=== PATIENT | male | born 1980 | race Hispanic/Latino ===

== ENCOUNTER 2025-05-12 19:24 | Emergency (ER) | payer OTHER ==
[~2025-05-12] VITALS: Ht 177.8 cm; Wt 83.9 kg
[2025-05-12] MEDS: ORPHENADRINE 60MG/2ML IM ONE (22:49)
[2025-05-12] MEDS ORDERED: CYCL-309 PO (23:23)
[2025-05-12] MEDS ORDERED: KETO10TA2 PO (23:23)
--- NOTE | 2025-05-12 23:25 | ERN ---
General Chief Complaint: Low Back Pain/Injury Stated Complaint: BACK PAIN Time Seen by MD: 20:19 Time Seen by Midlevel: 20:19 Source: patient History of Present Illness Initial Comments Patient is a 45-year-old male presenting to the ER with lower back pain. Patient states he with a picking up something while at work and felt his lower back locked up. Patient was unable to stand up for several minutes. On arrival he reports pain to his lower back denies any urinary/bowel incontinence, denies numbness to lower extremities, denies weakness lower extremities. Allergies: Coded Allergies: No Known Allergies (Unverified Allergy, Unknown, 05/12/25) Past Medical History Past Medical History: No Pertinent History Past Surgical History: None ROS Dictation CONSTITUTIONAL: Negative except for HPI HEAD/FACE: Negative except for HPI EENT: Negative except for HPI RESPIRATORY: Negative except for HPI GASTROINTESTINAL/ABDOMINAL: Negative except for HPI GENITOURINARY: Negative except for HPI MUSCULOSKELETAL: Negative except for HPI INTEGUMENTARY: Negative except for HPI NEUROLOGICAL/PSYCH: Negative except for HPI HEMATOLOGIC/LYMPHATIC: Negative except for HPI All Systems Negative, Except as noted above. 13 point review of systems assessed and all negative except for above. Physical Exam Physical Exam Dictation Vital Signs reviewed General Appearance: Alert, oriented x 3, no acute distress, well developed, nourished. Head and Face: non-traumatic. Eyes: PERRL, pink conjunctivas, eyelid no trauma, anterior chamber with arcus senilis. Ears: Pinnas intact and no signs of trauma or erythema ear canals clear and no discharge TM no erythema Nose: No discharge, no bleeding. Oropharynx: Mouth normal, tongue pink, pharynx clear,no erythema, tonsils no exudates, no abscesses noted, mucous membrane moist Neck: Supple, non-tender, no thyromegaly, no masses, no JVD, no bruits Breast:Deferred Chest:No tenderness, no crepitus, no paradoxical movement, no retractions Lungs:Clear, well-ventilated, symmetric, no rales, no wheezing, no rhonchi, no stridor, good breath sounds bilaterally Heart: Regular rate, regular rhythm, no murmur, no gallops Vascular: no peripheral edema, Abdomen: Soft, positive bowel sounds, nondistended, no guarding, nontender, no rebound, no masses no hepatomegaly, no splenomegaly, no Ortega's sign, no hernias. Rectal: Deferred Genital: Deferred Neurological: Normal speech, motor function intact, sensory function intact Musculoskeletal: Neck nontender, full range of motion, paraspinal muscle tenderness to the lumbar region, no midline tenderness, full range of motion, Extremities: nontender, full range of motion Skin: Color pink, dry, no turgor, no rash, no lacerations, no abrasions, no contusions. Lymphatic: Deferred MDM MDM: Differential diagnosis: Fracture, contusion, dislocation There are no social concerns with this patient. Prescription drug management Prescriptions will include: None Medical management and examination interpretation discussions were had by me with other qualified healthcare professionals as indicated for the patient's care. ED Course Orders Procedure Category Date Status Time Lumbar Spine 2-3vws RAD 05/12/25 Taken 21:59 Ketorolac PHA 05/12/25 Complete Tromethamine 15mg/Ml 22:30 Orphenadrine Citrate PHA 05/12/25 Complete (Norflex) 22:30 Current Medications Medications (Trade) Dose Ordered Sig/Jennifer Route PRN Reason Start Time Stop Time Status Last Admin Dose Admin Ketorolac Tromethamine (toRADol) 15 mg ONCE ONCE IM 05/12/25 22:30 05/12/25 22:31 DC 05/12/25 22:49 Orphenadrine Citrate (Norflex) 60 mg ONCE ONCE IM 05/12/25 22:30 05/12/25 22:31 DC 05/12/25 22:49 Vital Signs Date Time Temp Pulse Resp B/P (MAP) Pulse Ox O2 Delivery O2 Flow Rate FiO2 05/12/25 20:57 98.2 72 16 136/90 98 Room Air* 0 21 05/12/25 20:16 98.4 74 16 134/94 100 Room Air DX & DISP Disposition: Discharge Departure Impression: Primary Impression: Lumbar strain Condition: Stable Scripts Cyclobenzaprine HCl (Cyclobenzaprine HCl) 10 Mg Tablet 1 TAB PO TID for muscle spasms for 10 Days, #30 TAB 0 Refills Prov: JOHN PAUL LOWRY 05/12/25 Ketorolac Tromethamine (Ketorolac Tromethamine) 10 Mg Tablet 1 TAB PO TID for pain for 5 Days, #15 TAB 0 Refills Prov: JOHN PAUL LOWRY 05/12/25 Additional Instructions: Your lower back x-ray does not show any evidence an acute fracture or dislocation. Your symptoms are most likely musculoskeletal in nature. I have given you a Toradol and cyclobenzaprine. If your symptoms do not improve over week please report to the ER evaluation. Please avoid any heavy lifting. Referrals: JUNIOR DANIELS (PCP) Time of Disposition: 23:23 I have reviewed the case, and I agree with, Diagnosis and Plan I performed the substantive portion of the visit. I have reviewed and personally made and approve the management plan that is documented in the note by myself or the ADILSON. I acknowledge for responsibility for the patient's management plan. JOHN PAUL LOWRY May 12, 2025 23:25
[2025-05-12 23:26] VITALS: BP 129/86; PULSE 79; RESP 18; TEMP 98; O2SAT 97
--- NOTE | 2025-05-13 00:20 | HMCIMG ---
EXAM: CR Lumbar Spine, 2 views. CLINICAL HISTORY: Pain. COMPARISON: None provided. FINDINGS: Loss of the normal lumbar lordosis. Mild spondylosis. Mild degenerative disc space narrowing at L5 7. The remaining disc spaces are maintained. Normal vertebral body heights. No acute fracture. Soft tissues are within normal limits. IMPRESSION: No acute bony changes. Loss of the normal lumbar lordosis could be secondary to muscular spasm. Mild spondylosis. Mild degenerative disc space narrowing at L5-S1. /[place]
== END 2025-05-12 23:34 | disposition home or self-care (01) ==
LOC: EDH 20:15
DX: S39.012A Strain of muscle, fascia and tendon of lower back, initial encounter (principal); X58.XXXA Exposure to other specified factors, initial encounter; Y93.89 Activity, other specified; Y92.89 Other specified places as the place of occurrence of the external cause; Y99.8 Other external cause status
CPT/HCPCS: 99284; 72100; 96372 ×2; J1885; J2360